=== PATIENT | male | born 1940 | race Caucasian/White ===

== ENCOUNTER 2018-08-11 11:26 | Day surgery (SDC) | payer MEDICARE ==
[~2018-08-11] VITALS: Ht 165.1 cm; Wt 73.6 kg
[~2018-08-11 11:26] MED LIST: HYDR1TAB94 PO; LISI20 PO; OMEP20ER PO; TADA10TA PO
== END 2018-08-11 13:18 | disposition home or self-care (01) ==
LOC: ORSCSDS 11:26
PROVIDERS: Internal Medicine Gastroenterology
PROC: 0DBK8ZX Excision of Ascending Colon, Via Natural or Artificial Opening Endoscopic, Diagnostic (ICD-10-PCS; principal; 2018-08-11 13:15)
DX: Z12.11 Encounter for screening for malignant neoplasm of colon (principal); Z86.010 Personal history of colon polyps; D12.2 Benign neoplasm of ascending colon; K57.30 Diverticulosis of large intestine without perforation or abscess without bleeding; K64.8 Other hemorrhoids; I10 Essential (primary) hypertension; K21.9 Gastro-esophageal reflux disease without esophagitis; Z87.11 Personal history of peptic ulcer disease; E83.119 Hemochromatosis, unspecified; Z87.891 Personal history of nicotine dependence; Z79.899 Other long term (current) drug therapy
CPT/HCPCS: 88305; J2704; J7120

== ENCOUNTER 2019-03-02 09:11 | Day surgery (SDC) | payer MEDICARE ==
[~2019-03-02] VITALS: Ht 165.1 cm; Wt 75.4 kg
== END 2019-03-02 10:45 | disposition home or self-care (01) ==
LOC: ORSCSDS 09:11
PROVIDERS: Internal Medicine Gastroenterology
PROC: 0D758ZZ Dilation of Esophagus, Via Natural or Artificial Opening Endoscopic (ICD-10-PCS; principal; 2019-03-02 10:30)
DX: R13.10 Dysphagia, unspecified (principal); K22.2 Esophageal obstruction; I10 Essential (primary) hypertension; Z79.899 Other long term (current) drug therapy
CPT/HCPCS: J2704; J7120

== ENCOUNTER 2023-05-11 08:37 | Observation (INO) | payer MEDICARE ==
[~2023-05-11] VITALS: Ht 165.1 cm; Wt 72.6 kg
[2023-05-11 09:16] LABS: BASOPHILS ABSOLUTE AUTO 0.05 K/mm3 (0.00-0.23); BASOPHILS PERCENT AUTO 0 % (0-2); EOSINOPHILS ABSOLUTE AUTO 0.03 K/mm3 (0.00-0.68); EOSINOPHILS PERCENT AUTO 0 % (0-6); Hemoglobin 15.6 g/dL (13.5-17.5); IMMATURE GRAN ABSOLUTE AUTO 0.14 K/mm3 (0.00-0.10); IMMATURE GRAN PERCENT AUTO 1 % (0-1); LYMPHOCYTES ABSOLUTE AUTO 0.19 K/mm3 (0.84-5.20); LYMPHOCYTES PERCENT AUTO 1 % (21-46); MONOCYTES ABSOLUTE AUTO 0.42 K/mm3 (0.16-1.47); MONOCYTES PERCENT AUTO 3 % (4-13); Mean Corpuscular HGB 32.2 pg (26.0-34.0); Mean Corpuscular HGB Conc 35.5 g/dL (31.5-36.5); Mean Corpuscular Volume 91 fL (80-100); Mean Platelet Volume 10.3 fL (9.1-12.4); NEUTROPHILS ABSOLUTE AUTO 16.03 K/mm3 (1.96-9.15); NEUTROPHILS PERCENT AUTO 95 % (41-73); Platelet Count 200 K/mm3 (150-400); RDW Coefficient Variation 11.5 % (11.7-14.2); RDW Standard Deviation 38.4 fL (35.1-46.3); Red Blood Cell Count 4.84 M/mm3 (4.30-5.90); White Blood Cell Count 16.86 K/mm3 (4.00-11.30)
[2023-05-11 09:48] LABS: Albumin, Blood 3.4 g/dL (3.4-5.0); Albumin/Globulin Ratio 1.2 (0.8-1.8); Bun/Creatinine Ratio 16.8 (12.0-20.0); Calcium, Blood 9.9 mg/dL (8.5-10.1); Creatinine, Blood 0.95 mg/dL (0.60-1.20); Globulin, Blood 2.8 g/dL (2.2-4.0); Potassium, Blood 3.8 mmol/L (3.5-5.5); Total Protein, Blood 6.2 g/dL (6.4-8.2)
[2023-05-11 09:53] LABS: Influenza A, PCR NEGATIVE (NEGATIVE); Influenza B, PCR NEGATIVE (NEGATIVE); Resp Syncytial Virus, PCR NEGATIVE (NEGATIVE); SARS-Cov-2 (COVID-19) PCR, MMC NEGATIVE (NEGATIVE)
[2023-05-11 19:02] LABS: Source, Urine Clean Catch
[2023-05-11 19:21] LABS: Appearance, Urine Clear (Clear); Blood, Urine 1+ (Neg); Color, Urine Amber (P-Yellow); Glucose Qualitative, Urine Neg (Neg); Ketones, Urine Neg (Neg); Leukocyte Esterase, Urine Neg (Neg); Nitrite, Urine Neg (Neg); Protein, Urine 2+ (Neg); Specific Gravity, Urine 1.015 (1.003-1.022); Urobilinogen, Urine 2+ (Normal)
[2023-05-11 19:46] LABS: Bilirubin, Urine 2+ (Neg)
[2023-05-11 19:51] LABS: Bacteria Few /hpf; Granular Casts 0-2 /lpf (0); Squamous Epithelial Cells Rare /hpf (Few); White Blood Cells, Urine 0-2 /hpf (0-5)
[2023-05-11 22:10] VITALS: BP 134/79
[2023-05-11 23:26] LABS: International Normalized Ratio 1.25
[2023-05-12 02:54] VITALS: BP 139/71
[2023-05-12 04:42] LABS: BASOPHILS ABSOLUTE AUTO 0.04 K/mm3 (0.00-0.23); BASOPHILS PERCENT AUTO 0 % (0-2); EOSINOPHILS ABSOLUTE AUTO 0.05 K/mm3 (0.00-0.68); EOSINOPHILS PERCENT AUTO 0 % (0-6); Hematocrit 41.5 % (37.0-53.0); Hemoglobin 14.3 g/dL (13.5-17.5); IMMATURE GRAN ABSOLUTE AUTO 0.24 K/mm3 (0.00-0.10); IMMATURE GRAN PERCENT AUTO 2 % (0-1); LYMPHOCYTES ABSOLUTE AUTO 0.39 K/mm3 (0.84-5.20); LYMPHOCYTES PERCENT AUTO 2 % (21-46); MONOCYTES ABSOLUTE AUTO 0.65 K/mm3 (0.16-1.47); MONOCYTES PERCENT AUTO 4 % (4-13); Mean Corpuscular HGB 31.8 pg (26.0-34.0); Mean Corpuscular HGB Conc 34.5 g/dL (31.5-36.5); Mean Corpuscular Volume 92 fL (80-100); Mean Platelet Volume 10.8 fL (9.1-12.4); NEUTROPHILS ABSOLUTE AUTO 15.14 K/mm3 (1.96-9.15); NEUTROPHILS PERCENT AUTO 92 % (41-73); Platelet Count 174 K/mm3 (150-400); RDW Standard Deviation 40.6 fL (35.1-46.3); White Blood Cell Count 16.51 K/mm3 (4.00-11.30)
--- NOTE | 2023-05-12 04:44 | NUR ---
SHIFT SUMMERY. PT RESTING IN BED, PT VOIDED AND HAD VERY DARK TEA COLORED URINE. PT NOT C/O PAIN OR CHEST PAIN NO C/O ABD PAIN OR N/V. CALL LIGHT IN REACH.
[2023-05-12 05:00] LABS: Albumin, Blood 2.9 g/dL (3.4-5.0); Albumin/Globulin Ratio 1.2 (0.8-1.8); Bilirubin, Total 4.1 mg/dL (0.1-1.0); Bun/Creatinine Ratio 21.6 (12.0-20.0); Calcium, Blood 8.5 mg/dL (8.5-10.1); Creatinine, Blood 0.83 mg/dL (0.60-1.20); Globulin, Blood 2.5 g/dL (2.2-4.0); Potassium, Blood 3.8 mmol/L (3.5-5.5); Total Protein, Blood 5.4 g/dL (6.4-8.2)
[2023-05-12 07:25] VITALS: BP 139/78
[2023-05-12 15:09] VITALS: BP 155/80
--- NOTE | 2023-05-12 16:56 | NUR ---
SHIFT SUMMARY: PATIENT A/OX4, PLEASANT AND COOPERATIVE c CARE. PATIENT DENIES CP/PRESSURE, N/V, SOB AND DIZZINESS. PATIENT REPORTS TENDERNESS TO LOWER ABDOMEN AT BEGINNING OF SHIFT, BUT RESSOLVED. PATIENT ON TELE, SR HR IN THE HIGH 90'S BPM. PATIENT ON REGULAR DIET, TOLERATING WELL. PATIENT IS CONTINENCE OF BOWELS/BLADDER, AMBULATES TO BATHROOM c SBA AND DOES NOT USES ANY ASSISTIVE DEVICES c AMBULATION. PATIENT RECEIVED IV ABX AND SCHEDULED MEDS PER EMAR. PATIENT HAS NO COMPLAINTS OR DENIES ANY CONCERNED THIS SHIFT. VITAL SIGNS REVIEWED. PIV TO RAC SALINE LOCKED. CALL LIGHT IN REACH.
[2023-05-12 20:00] VITALS: BP 149/82
[2023-05-13 03:43] VITALS: BP 146/80
--- NOTE | 2023-05-13 04:40 | NUR ---
SHIFT SUMMARY PT IS A&OX4, PLEASANT AND COOPERATIVE WITH CARES. VSS, BP ELEVATED, SR @ 92 PER TELEMETRY, TMAX 99.4, ON RA. DENIES PAIN THIS SHIFT. NO ACUTE CHANGES THIS SHIFT. VOIDING ADEQUATE AMOUNTS OF DARK YELLOWISH/ORANGE URINE, INDEPENDENTLY IN URINAL. NO BM THIS SHIFT. TOLERATING A REGULAR DIET. BED IN LOWEST POSITION, CALL LIGHT WITHIN REACH. BED ALARM SET FOR PT'S SAFETY.
[2023-05-13 07:22] VITALS: BP 146/87
[2023-05-13 07:47] LABS: Hematocrit 40.6 % (37.0-53.0); Mean Corpuscular HGB 31.9 pg (26.0-34.0); Mean Corpuscular HGB Conc 34.5 g/dL (31.5-36.5); Mean Corpuscular Volume 93 fL (80-100); Mean Platelet Volume 10.5 fL (9.1-12.4); Platelet Count 146 K/mm3 (150-400); RDW Coefficient Variation 11.9 % (11.7-14.2); Red Blood Cell Count 4.39 M/mm3 (4.30-5.90); White Blood Cell Count 7.56 K/mm3 (4.00-11.30)
[2023-05-13 08:05] LABS: Albumin, Blood 2.5 g/dL (3.4-5.0); Albumin/Globulin Ratio 0.8 (0.8-1.8); Bilirubin, Total 3.4 mg/dL (0.1-1.0); Bun/Creatinine Ratio 20.9 (12.0-20.0); Creatinine, Blood 0.77 mg/dL (0.60-1.20); Globulin, Blood 3.1 g/dL (2.2-4.0); Potassium, Blood 3.9 mmol/L (3.5-5.5); Total Protein, Blood 5.6 g/dL (6.4-8.2)
[2023-05-13] MEDS ORDERED: AMOCLA500 PO (10:57)
--- NOTE | 2023-05-13 14:22 | NUR ---
DISCHARGE: PT D/C @1415 VIA WHEELCHAIR WITH . NEW ABX CALLED INTO [facility] ON [address]. PT AWARE TO NOT STOP TAKING MEDICATIONS EVEN IF FEELING BETTER. IV REMOVED BY KHADIJAH GROSS W/O COMPLICATIONS. NO QUESTIONS AT TIME OF DISCHARGE.
[2023-05-14 08:39] LABS: HEPATITIS A ANTIBODY, IGM Negative (Negative); HEPATITIS B CORE ANTIBODY, IGM Negative (Negative); HEPATITIS B SURFACE ANTIGEN Negative (Negative); HEPATITIS C AB CIA INTERP Negative (Negative); HEPATITIS C ANTIBODY CIA INDEX 0.09 IV
== END 2023-05-13 14:21 | disposition home or self-care (01) ==
LOC: ER 08:37 → MEDS 08:38
PROVIDERS: Emergency Medicine; Internal Medicine; ADMIT Internal Medicine
DX: K91.86 Retained cholelithiasis following cholecystectomy (principal); A41.9 Sepsis, unspecified organism; I10 Essential (primary) hypertension; Z87.891 Personal history of nicotine dependence
CPT/HCPCS: 0241U; 36415; 71045; 74177; 74181; 80053; 80074; 81001; 83605; 83690; 83880; 84145; 84484; 85025; 85027; 85610; 87040; 93005; 93010; 96365-59; 96372; 96376; 99285-25; A9270; G0378; J0696; J1650; J7030; Q9967

== ENCOUNTER → 2023-08-21 | Outpatient (CLI) | payer MEDICARE ==
[~2023-08-21] MED LIST changes: +AMOCLA500 PO; +CEPH500 PO
== END | disposition home or self-care (01) ==
LOC: LAB SHORT 13:30 → LAB 13:30
DX: L08.9 Local infection of the skin and subcutaneous tissue, unspecified (principal)
CPT/HCPCS: 87070; 87077; 87147; 87186; 87205

== ENCOUNTER 2024-10-20 09:44 | Day surgery (SDC) | payer MEDICARE ==
[~2024-10-20] VITALS: Ht 165.1 cm; Wt 70.6 kg
[2024-10-20 12:13] VITALS: BP 141/79
== END 2024-10-20 12:18 | disposition home or self-care (01) ==
LOC: ORSCSDS 09:44
PROVIDERS: Specialist
PROC: 0DBN8ZX Excision of Sigmoid Colon, Via Natural or Artificial Opening Endoscopic, Diagnostic (ICD-10-PCS; principal; 2024-10-20 11:15)
PROC: 0D758ZZ Dilation of Esophagus, Via Natural or Artificial Opening Endoscopic (ICD-10-PCS; principal; 2024-10-20 11:15)
PROC: 0DB78ZX Excision of Stomach, Pylorus, Via Natural or Artificial Opening Endoscopic, Diagnostic (ICD-10-PCS; principal; 2024-10-20 11:15)
DX: R13.10 Dysphagia, unspecified (principal); Z12.11 Encounter for screening for malignant neoplasm of colon; Z86.0100 Personal history of colon polyps, unspecified; K63.5 Polyp of colon; K29.70 Gastritis, unspecified, without bleeding; K57.30 Diverticulosis of large intestine without perforation or abscess without bleeding; K64.8 Other hemorrhoids; I10 Essential (primary) hypertension; Z85.46 Personal history of malignant neoplasm of prostate; Z79.899 Other long term (current) drug therapy; Z87.891 Personal history of nicotine dependence
CPT/HCPCS: 88305; C1769; J2704; J7120